=== PATIENT | female | born 1970 | race Caucasian/White ===

== ENCOUNTER 2017-07-06 12:27 | Emergency (ER) | payer OTHER ==
[~2017-07-06] VITALS: Ht 175.3 cm; Wt 47.2 kg
[2017-07-06 12:59] LABS: HEMATOCRIT 44.2 % (36.0-46.0); HEMOGLOBIN 15.2 G/DL (11.9-15.5); MCH 32.5 PG (29.0-34.0); MCHC 34.4 G/DL (30.0-36.0); MCV 94.6 FL (83-99); PLATELET COUNT 237 K/uL (156-360); RBC DIS.WIDTH-CV 11.5 % (11.8-14.6); RBC DIS.WIDTH-SD 39.8 % (39-53); RED BLOOD COUNT 4.67 M/uL (3.80-5.20); WHITE BLOOD COUNT 6.8 K/uL (4.1-10.2)
[2017-07-06 13:14] LABS: CHLORIDE 101 mEq/L (99-109); POTASSIUM 4.5 mEq/L (3.7-5.4); SODIUM 140 mEq/L (136-147)
[2017-07-06 13:15] LABS: GLUCOSE 109 mg/dL (70-99)
[2017-07-06 13:19] LABS: CREATININE 1.1 mg/dL (0.6-1.3)
[2017-07-06 13:20] LABS: UREA NITROGEN (BUN) 10 mg/dL (9-23)
[2017-07-06 13:21] LABS: GFR ESTIMATE (CALCULATED) 57 mL/min/
[2017-07-06 14:50] LABS: APPEARANCE CLEAR ((CLEAR)); BILIRUBIN NEGATIVE; BLOOD NEGATIVE; COLOR YELLOW ((YELLOW)); GLUCOSE (STRIP) NEGATIVE; KETONES NEGATIVE; LEUKOCYTES NEGATIVE; NITRITE NEGATIVE; PROTEIN (STRIP) NEGATIVE; SPECIFIC GRAVITY 1.012 (1.000-1.030); UCUL ADDED? NO; UROBILINOGEN 0.2 MG/DL (0.2-1.0)
[2017-07-06 15:00] LABS: QUANTITATIVE HCG < 4.0 MIU/ML
[2017-07-06 15:11] LABS: ALBUMIN 4.9 g/dL (3.2-4.8)
[2017-07-06 15:14] LABS: TOTAL PROTEIN 7.6 g/dL (6.4-8.3)
[2017-07-06 15:15] LABS: TOTAL BILIRUBIN 0.7 mg/dL (0.0-1.0)
[2017-07-06 15:16] LABS: ALKALINE PHOSPHATASE 88 IU/L (3-129)
[2017-07-06 15:19] LABS: AST (GOT) 17 IU/L (2-34); DIRECT BILIRUBIN 0.3 mg/dL (0.0-0.3)
[2017-07-06 15:20] LABS: ALT (GPT) 14 IU/L (3-49)
[2017-07-06] MEDS ORDERED: CITRATE OF MAG296 ML PO (18:14)
[2017-07-06] MEDS ORDERED: ZOFRAN ODT4 MG PO (18:14)
[2017-07-06 18:26] VITALS: BP 122/75
== END 2017-07-06 18:28 | disposition home or self-care (01) ==
LOC: EME 12:27
PROVIDERS: Nurse Practitioner Family
DX: R10.9 Unspecified abdominal pain (principal); G89.29 Other chronic pain; K59.00 Constipation, unspecified; Z85.41 Personal history of malignant neoplasm of cervix uteri; Z90.710 Acquired absence of both cervix and uterus; C78.00 Secondary malignant neoplasm of unspecified lung; C77.9 Secondary and unspecified malignant neoplasm of lymph node, unspecified; E78.5 Hyperlipidemia, unspecified; F17.200 Nicotine dependence, unspecified, uncomplicated
CPT/HCPCS: 71046; 74177; 80048; 80076; 81003; 84702; 85027; 99281; 99285; J1200; J2270; J2405; J7030

== ENCOUNTER 2017-07-10 19:53 | Emergency (ER) | payer OTHER ==
[~2017-07-10] VITALS: Ht 175.3 cm; Wt 47.9 kg
[~2017-07-10 19:53] MED LIST: CITRATE OF MAG296 ML PO; ZOFRAN ODT4 MG PO
[2017-07-10 20:46] LABS: APPEARANCE CLEAR ((CLEAR)); BILIRUBIN NEGATIVE; BLOOD NEGATIVE; COLOR YELLOW ((YELLOW)); GLUCOSE (STRIP) NEGATIVE; KETONES NEGATIVE; LEUKOCYTES TRACE; NITRITE NEGATIVE; PROTEIN (STRIP) NEGATIVE; SPECIFIC GRAVITY 1.014 (1.000-1.030)
[2017-07-10 20:59] LABS: BACTERIA NONE SEEN /HPF; EPITHELIAL CELLS RARE /HPF; MUCUS NONE SEEN /LPF; RED BLOOD CELLS 0-5 /HPF (0-5); UCUL ADDED? NO; WHITE BLOOD CELLS 0-5 /HPF (0-5)
[2017-07-10 21:04] LABS: HEMATOCRIT 38.1 % (36.0-46.0); HEMOGLOBIN 13.4 G/DL (11.9-15.5); MCH 33.3 PG (29.0-34.0); MCHC 35.2 G/DL (30.0-36.0); MCV 94.5 FL (83-99); PLATELET COUNT 193 K/uL (156-360); RBC DIS.WIDTH-CV 11.5 % (11.8-14.6); RBC DIS.WIDTH-SD 39.7 % (39-53); RED BLOOD COUNT 4.03 M/uL (3.80-5.20); WHITE BLOOD COUNT 6.3 K/uL (4.1-10.2)
[2017-07-10 21:13] LABS: ALBUMIN 4.1 g/dL (3.2-4.8); CHLORIDE 104 mEq/L (99-109); POTASSIUM 4.1 mEq/L (3.7-5.4); SODIUM 138 mEq/L (136-147)
[2017-07-10 21:15] LABS: GLUCOSE 85 mg/dL (70-99); TOTAL PROTEIN 6.5 g/dL (6.4-8.3)
[2017-07-10 21:19] LABS: ALKALINE PHOSPHATASE 71 IU/L (3-129); CREATININE 0.9 mg/dL (0.6-1.3); GFR ESTIMATE (CALCULATED) > 59 mL/min/
[2017-07-10 21:20] LABS: UREA NITROGEN (BUN) 9 mg/dL (9-23)
[2017-07-10 21:21] LABS: AST (GOT) 15 IU/L (2-34)
[2017-07-10 21:22] LABS: ALT (GPT) 14 IU/L (3-49)
[2017-07-10 21:23] LABS: TOTAL BILIRUBIN 0.4 mg/dL (0.0-1.0)
[2017-07-10 21:33] LABS: QUANTITATIVE HCG < 4.0 MIU/ML
[2017-07-11] MEDS ORDERED: LIDOCAINE700 MG TP (02:34)
[2017-07-11] MEDS ORDERED: ZITHROMAX Z-PA250 MG PO (02:40)
[2017-07-11 02:52] VITALS: BP 114/79
== END 2017-07-11 02:54 | disposition home or self-care (01) ==
LOC: EME 19:53
DX: R10.9 Unspecified abdominal pain (principal); M54.9 Dorsalgia, unspecified; G89.29 Other chronic pain; Z85.41 Personal history of malignant neoplasm of cervix uteri; F17.200 Nicotine dependence, unspecified, uncomplicated; E78.5 Hyperlipidemia, unspecified; Z88.1 Allergy status to other antibiotic agents
CPT/HCPCS: 80053; 81003; 84702; 85027; 99281; 99284; J2270